=== PATIENT | male | born 1975 ===

== ENCOUNTER 2017-11-17 19:19 | Emergency (ER) | payer MEDICAID, OTHER ==
[2017-11-17] MEDS ORDERED: Sodium Chloride 0.9% 1,000 ML IV ONE (19:22)
[2017-11-17 19:23] VITALS: BMI 30.7
[2017-11-17 19:34] VITALS: TEMP 97.9
[2017-11-17 19:40] LABS: BASO # 0.1 K/uL (0.0-0.2); BASO % 0.6 % (0.0-2.0); EOS # 0.2 K/uL (0.0-0.7); EOS % 1.5 % (0.0-4.0); HEMOGLOBIN 12.3 g/dL (12.0-18.0); LYMPH # 3.5 K/uL (1.0-4.3); LYMPH % 31.3 % (20.0-40.0); MEAN CELL VOLUME 94.1 fL (80.0-94.0); MEAN CORPUSCULAR HEMOGLOBIN 30.7 pg (27.0-31.0); MEAN CORPUSCULAR HGB CONC 32.6 g/dL (33.0-37.0); MEAN PLATELET VOLUME 9.6 fL (7.2-11.7); NEUT # 6.4 K/uL (1.8-7.0); NEUT % 57.6 % (50.0-75.0); RBC 4.01 Mil/uL (4.40-5.90); RED CELL DISTRIBUTION WIDTH 13.7 % (11.5-14.5); WHITE BLOOD COUNT 11.1 K/uL (4.8-10.8)
[2017-11-17 19:51] LABS: ACETAMINOPHEN < 10.0 ug/mL (10.0-30.0); ALB/GLOB RATIO 1.6 (1.0-2.1); ALT/SGPT 37 U/L (21-72); AST/SGOT 46 U/L (17-59); BLOOD UREA NITROGEN 16 mg/dL (9-20); CALCIUM 8.5 mg/dl (8.6-10.4); GFR AFRICAN-AMERICAN > 60; GFR NON-AFRICAN AMERICAN > 60; SALICYLATE < 1.0 mg/dL 1
--- NOTE | 2017-11-17 20:17 | C.PDOC ---
History Of Present Illness 42yo male, brought to ER by ambulance for evaluation after a heroin overdose. Patient was found on the front porch and was noted to have fallen forward and hit the left frontal area of his head. Patient was given Narcan 2mg INH and 0.4mg IV with improvement. Currently, patient is awake and alert in ER. He has no medical complaints. Time Seen by Provider: 11/17/17 19:22 Chief Complaint (Nursing): Substance Abuse History Per: EMS Current Symptoms Are (Timing): Gone Modifying Factor(s): Narcotics Past Medical History Reviewed: Historical Data, Nursing Documentation, Vital Signs Vital Signs: Last Vital Signs Temp 97.9 F 11/17/17 19:34 Pulse 83 11/17/17 23:22 Resp 28 H 11/17/17 23:22 BP 122/91 H 11/17/17 23:22 Pulse Ox 98 11/17/17 23:22 - Medical History PMH: Anxiety, Asthma, COPD, Depression, Fractures, Schizophrenia, Seizures Denies: Chronic Kidney Disease Surgical History: No Surg Hx - [facility] Procedures ESOPHAGOGASTRODUODENOSCOPY [EGD] W/CLOSED BIOPSY (05/20/13) INJECT/INFUSE ELECTROLYT (04/03/14) INJECT/INFUSE NEC (04/03/14) MAGNETIC RESONANCE IMAGING OF BRAIN AND BRAIN STEM (05/20/13) Family History: States: No Known Family Hx - Social History Hx Tobacco Use: Yes Hx Alcohol Use: Yes 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 Cardiovascular: Negative for: Chest Pain Respiratory: Negative for: Shortness of Breath Physical Exam - Physical Exam Appears: Non-toxic, No Acute Distress Skin: Warm, Dry Head: Normacephalic, No Tenderness, No Swelling, No Abrasion, No Laceration, Other (contusion noted to left forehead) Eye(s): bilateral: Normal Inspection, PERRL, EOMI Nose: Normal Neck: Normal ROM, Supple Chest: Symmetrical Cardiovascular: Rhythm Regular Respiratory: Normal Breath Sounds Neurological/Psych: Oriented x3 ED Course And Treatment - Laboratory Results Result Diagrams: 11/17/17 19:30 11/17/17 19:30 Lab Interpretation: Abnormal (tox + opiates/benzo's) ECG: Interpreted By Me ECG Rhythm: Sinus Rhythm ECG Interpretation: Normal Rate From EC O2 Sat by Pulse Oximetry: 87 Pulse Ox Interpretation: Abnormal - Radiology CXR: Interpreted by Me CXR Interpretation: Yes: No Acute Disease - Other Rad head Ct X-Ray: Read By Radiologist (no acute findings.) Reevaluation Time: 23:27 Reassessment Condition: Improved (awake, alert, ambulatory) Medical Decision Making Medical Decision Making: persistent mental illness and polysubstance abuse Disposition Doctor Will See Patient In The: Office Counseled Patient/Family Regarding: Studies Performed, Diagnosis - Disposition Disposition: HOME/ ROUTINE Disposition Time: 23:27 Condition: GOOD Forms: [employer] (Romansh) - Clinical Impression Clinical Impression: Polysubstance abuse - Scribe Statement The provider has reviewed the documentation as recorded by the Scribe (Anne Mirza) Provider Attestation: All medical record entries made by the Scribe were at my direction and personally dictated by me. I have reviewed the chart and agree that the record accurately reflects my personal performance of the history, physical exam, medical decision making, and the department course for this patient. I have also personally directed, reviewed, and agree with the discharge instructions and disposition.
[2017-11-17] MEDS ORDERED: Naloxone 0.4 mg/ml Inj (Adult) IVP ONE (20:22)
[2017-11-17] MEDS ORDERED: Naloxone 0.4 mg/ml Inj (Adult) ONE (20:26)
[2017-11-17 20:27] LABS: SQUAMOUS EPITHIAL < 1 /hpf (0-5); URINE BACTERIA FEW (<OCC); URINE BILIRUBIN NEGATIVE (NEGATIVE); URINE BLOOD NEGATIVE (NEGATIVE); URINE CLARITY Hazy (Clear); URINE COLOR Yellow (YELLOW); URINE GLUCOSE (UA) 2+ mg/dL (Normal); URINE LEUKOCYTE ESTERASE NEG Leu/uL (Negative); URINE PROTEIN 2+ mg/dL (NEGATIVE); URINE UROBILINOGEN NORMAL mg/dL (0.2-1.0)
[2017-11-17 20:45] LABS: BARBITURATES, UR NEGATIVE (NEGATIVE); PHENCYCLIDINE, UR NEGATIVE (NEGATIVE)
[2017-11-17 21:09] LABS: BENZODIAZEPINES, UR POSITIVE (NEGATIVE); OPIATES, UR POSITIVE (NEGATIVE)
[2017-11-17 23:23] VITALS: BP 122/91; PULSE 83; RESP 28
[2017-11-17 23:28] VITALS: O2SAT 87
--- NOTE | 2017-11-18 08:33 | RAD ---
PROCEDURE: CHEST RADIOGRAPH, 1 VIEW HISTORY: OD, ? aspiration COMPARISON: None available. FINDINGS: LUNGS: Atelectatic changes seen right lower lobe. Questionable developing lower lobe infiltrate. PLEURA: No pneumothorax or pleural fluid seen. CARDIOVASCULAR: Normal. OSSEOUS STRUCTURES: No significant abnormalities. VISUALIZED UPPER ABDOMEN: Normal. OTHER FINDINGS: None. IMPRESSION: Atelectatic changes seen right lower lobe. Questionable developing lower lobe infiltrate. This report was placed in [facility] review folder for followup
--- NOTE | 2017-11-18 10:20 | CT ---
PROCEDURE: CT HEAD WITHOUT CONTRAST. HISTORY: Intoxication. Left frontal contusion. COMPARISON: Comparison made with prior CT scan brain 11/07/2014 TECHNIQUE: Axial computed tomography images were obtained through the head/brain without intravenous contrast. Radiation dose: Total exam DLP = 836.53 mGy-cm. This CT exam was performed using one or more of the following dose reduction techniques: Automated exposure control, adjustment of the mA and/or kV according to patient size, and/or use of iterative reconstruction technique. FINDINGS: HEMORRHAGE: No intracranial hemorrhage. 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 . Mild central volume loss. VENTRICLES: No obstructive hydrocephalus. CALVARIUM: There are no acute calvarial fractures. Old fracture deformity left lamina papyracea. PARANASAL SINUSES: Minor mucosal thickening seen within multiple ethmoid air cells. MASTOID AIR CELLS: Unremarkable as visualized. No inflammatory changes. OTHER FINDINGS: None. IMPRESSION: No acute intracranial hemorrhage. 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 . Mild central volume loss.
--- NOTE | 2017-11-20 16:01 | CARD ---
APPROVED REPORT EKG Measurement Heart [id number] <Conclusion> Normal sinus rhythm Possible Left atrial enlargement Borderline ECG
== END 2017-11-17 23:44 | disposition home or self-care (01) ==
LOC: C.ER 19:19
DX: F19.10 Other psychoactive substance abuse, uncomplicated (principal)
CPT/HCPCS: 70450; 71045; 80053; 80320; 80324; 80329; 80345; 80346; 80349; 80353; 80358; 80361; 81001; 82948; 83992; 85025; 93005; 96361; 96374; 99285; J2310; J7030